=== PATIENT | male | born 1995 | race Hispanic/Latino ===

== ENCOUNTER 2021-07-13 07:58 | Emergency (ER) | payer MEDICAID, OTHER ==
[~2021-07-13] VITALS: Ht 170.2 cm; Wt 81.6 kg
[2021-07-13 08:21] LABS: BASOPHILS % (AUTO) 0.4 % (0.0-5.0); EOSINOPHILS % (AUTO) 1.9 % (0.0-8.0); HEMATOCRIT 47.4 % (42-54); LYMPHOCYTES % (AUTO) 26.4 % (21.0-51.0); MEAN CORPUSCULAR HEMOGLOBIN 30.1 pg (27.0-33.0); MEAN CORPUSCULAR HGB CONC 34.8 g/dL (32.0-36.0); MEAN CORPUSCULAR VOLUME 86.3 fL (79-99); MONOCYTES % (AUTO) 5.9 % (3.0-13.0); PLATELET COUNT (AUTO) 266 K/uL (130-400); RED BLOOD CELL COUNT(AUTO) 5.49 MIL/uL (4.50-6.20); RED CELL DISTRIBUTION WIDTH 12.2 % (11.0-15.5); WHITE BLOOD COUNT (AUTO) 9.6 K/uL (4.8-10.8)
[2021-07-13 08:44] LABS: CREATININE 0.7 mg/dL (0.5-1.5); POTASSIUM 3.9 mmol/L (3.5-5.1)
[2021-07-13 08:49] LABS: ALBUMIN 4.2 g/dL (3.5-5.0); BILIRUBIN,TOTAL 0.5 mg/dL (0.2-1.0); TOTAL PROTEIN, SERUM 8.2 g/dL (6.0-8.3)
[2021-07-13] MEDS ORDERED: BENZONATATE 100 MG CAPSULE PO ONE (09:00)
[2021-07-13] MEDS ORDERED: IPRATROPIUM/ALBUTEROL SULFATE 3 ML SOLUTION IH ONE (09:00)
[2021-07-13] MEDS ORDERED: 0.9%NACL 1000ML 1,000 ML IV ONE (09:00)
[2021-07-13] MEDS ORDERED: SOLU-MEDROL 125MG VIAL IVP ONE (09:00)
[2021-07-13] MEDS ORDERED: PRED20TA3 PO (11:05)
[2021-07-13] MEDS ORDERED: BENZ-39 PO (11:05)
[2021-07-13] MEDS ORDERED: ALBU8.5H8 IH (11:05)
[2021-07-13 11:08] VITALS: BP 126/65
== END 2021-07-13 11:17 | disposition home or self-care (01) ==
LOC: EDH 07:58
DX: J40 Bronchitis, not specified as acute or chronic (principal); Z20.822 Contact with and (suspected) exposure to COVID-19; Z79.52 Long term (current) use of systemic steroids; Z79.899 Other long term (current) drug therapy
CPT/HCPCS: 36415; 71046; 80053; 85025; 87635; 87804 ×2; 93005; 94640; 94664; 96361; 96374; 99285; C9803; J2930; J7030